=== PATIENT | male | born 1995 | race African-American/Black ===

== ENCOUNTER 2018-03-09 13:28 | Emergency (ER) | payer BC, OTHER ==
[~2018-03-09] VITALS: Ht 182.9 cm; Wt 75.8 kg
[~2018-03-09 13:28] MED LIST: ACID CONTROL75 MG; CLARITIN10 M2 PO; KEFLEX500 MG PO; PREDNISONE 20 M20 M1 PO
[2018-03-09] MEDS ORDERED: AMOXICILLIN 50500 MG PO (14:32)
[2018-03-09] MEDS ORDERED: NAPROSYN500 MG PO (14:32)
[2018-03-09] MEDS ORDERED: TRAMADOL 50 MG50 MG PO (14:36)
[2018-03-09 15:40] VITALS: BP 119/88
== END 2018-03-09 15:41 | disposition home or self-care (01) ==
LOC: ER 13:28
DX: K05.30 Chronic periodontitis, unspecified (principal); K04.7 Periapical abscess without sinus; R59.1 Generalized enlarged lymph nodes; F17.210 Nicotine dependence, cigarettes, uncomplicated

== ENCOUNTER 2018-04-04 02:03 | Emergency (ER) | payer BC, OTHER ==
[~2018-04-04] VITALS: Ht 182.9 cm; Wt 75.8 kg
[~2018-04-04 02:03] MED LIST changes: +AMOXICILLIN 50500 MG PO; +NAPROSYN500 MG PO; +TRAMADOL 50 MG50 MG PO
[2018-04-04 03:23] LABS: HEMATOCRIT 42.5 % (42.0-52.0); HEMOGLOBIN 14.2 gm/dL (14.0-18.0); MCH 31.8 pg (26.0-34.0); MCHC 33.5 g/dL (28.0-37.0); MCV 94.7 fL (80.0-100.0); RBC 4.48 mil/uL (4.50-6.00); RDW 13.4 % (10.5-14.5); WBC 6.2 thou/uL (4.0-11.0)
[2018-04-04 03:26] LABS: CALCIUM 8.7 mg/dL (8.5-10.1); CREATININE 1.1 mg/dL (0.7-1.3); POTASSIUM 3.8 mmol/L (3.5-5.1)
[2018-04-04] MEDS ORDERED: CLEOCIN HCL150 MG PO (06:17)
[2018-04-04] MEDS ORDERED: MOBIC15 MG PO (06:19)
[2018-04-04 06:22] VITALS: BP 122/71
== END 2018-04-04 06:25 | disposition home or self-care (01) ==
LOC: ER 02:03
PROVIDERS: Emergency Medicine
DX: K04.7 Periapical abscess without sinus (principal); F17.210 Nicotine dependence, cigarettes, uncomplicated

== ENCOUNTER 2018-04-14 20:11 | Emergency (ER) | payer BC, OTHER ==
[~2018-04-14] VITALS: Ht 185.4 cm; Wt 79.4 kg
[~2018-04-14 20:11] MED LIST changes: +CLEOCIN HCL150 MG PO; +MOBIC15 MG PO
[2018-04-14] MEDS ORDERED: MOBIC7.5 MG PO (21:09)
[2018-04-14] MEDS ORDERED: CLEOCIN HCL150 MG PO (21:09)
[2018-04-14 21:20] VITALS: BP 101/82
== END 2018-04-14 21:25 | disposition home or self-care (01) ==
LOC: ER 20:11
DX: R68.84 Jaw pain (principal); K08.89 Other specified disorders of teeth and supporting structures; R22.0 Localized swelling, mass and lump, head

== ENCOUNTER 2018-04-16 17:11 | Emergency (ER) | payer BC, OTHER ==
[~2018-04-16] VITALS: Ht 182.9 cm; Wt 79.4 kg
[~2018-04-16 17:11] MED LIST changes: +MOBIC7.5 MG PO
[2018-04-16 18:10] LABS: ABSOLUTE NEUTROPHILS 3.2 thou/uL (1.4-8.2); BASOPHILS 0.8 % (0.0-2.0); EOSINOPHILS 2.5 % (0.0-3.0); HEMATOCRIT 44.8 % (42.0-52.0); HEMOGLOBIN 15.4 gm/dL (14.0-18.0); MCH 32.3 pg (26.0-34.0); MCHC 34.3 g/dL (28.0-37.0); MCV 94.1 fL (80.0-100.0); MONOCYTES 10.2 % (1.0-8.0); PLATELET COUNT 139 thou/uL (150-400); POLYS 57.5 % (36.0-66.0); RBC 4.76 mil/uL (4.50-6.00); RDW 13.8 % (10.5-14.5); WBC 5.5 thou/uL (4.0-11.0)
[2018-04-16 18:18] LABS: CALCIUM 9.4 mg/dL (8.5-10.1); CREATININE 1.2 mg/dL (0.7-1.3); POTASSIUM 3.9 mmol/L (3.5-5.1)
[2018-04-16 18:23] LABS: ALBUMIN 3.8 g/dL (3.4-5.0); TOTAL BILIRUBIN 0.6 mg/dL (<0.1-1.0); TOTAL PROTEIN 7.5 g/dL (6.4-8.2)
[2018-04-16] MEDS ORDERED: CLEOCIN HCL150 MG PO (19:44)
[2018-04-16 19:46] VITALS: BP 101/71
[2018-04-16] MEDS ORDERED: NORCO 5-325 TA1 EACH PO (19:47)
== END 2018-04-16 20:22 | disposition home or self-care (01) ==
LOC: ER 17:11
PROVIDERS: Physician Assistant
DX: K02.9 Dental caries, unspecified (principal); F17.210 Nicotine dependence, cigarettes, uncomplicated

== ENCOUNTER 2018-04-28 13:08 | Emergency (ER) | payer BC, OTHER ==
[~2018-04-28] VITALS: Ht 182.9 cm; Wt 79.4 kg
[~2018-04-28 13:08] MED LIST changes: +NORCO 5-325 TA1 EACH PO
[2018-04-28] MEDS ORDERED: NAPROSYN500 MG PO (13:32)
[2018-04-28] MEDS ORDERED: BUTALB-APAP-CA1 EACH PO (13:32)
[2018-04-28] MEDS ORDERED: AUGMENTIN 500-1 EACH PO (13:32)
[2018-04-28 13:55] VITALS: BP 134/88
== END 2018-04-28 13:58 | disposition home or self-care (01) ==
LOC: ER 13:08
DX: J32.9 Chronic sinusitis, unspecified (principal); J30.9 Allergic rhinitis, unspecified; F17.210 Nicotine dependence, cigarettes, uncomplicated